=== PATIENT | female | born 1955 | race Caucasian/White ===

== ENCOUNTER 2020-08-06 10:23 | Emergency (ER) | payer OTHER ==
[~2020-08-06] VITALS: Ht 162.6 cm; Wt 72.6 kg
[~2020-08-06 10:23] MED LIST: CIPRO250 M1 PO; CYCLOBENZAPRINE10 MG PO; HYDROCODON-ACE1 EACH; LORTAB 5-500 T1 EAC1 PO; MECLIZINE HCL12.5 MG PO; MEDROLDOSEPACK PO; SYNTHROID100 MCG PO; TOPROL XL50 MG PO; TRAMADOL 50 MG50 MG PO
[2020-08-06] MEDS ORDERED: [UNRECOGNIZED DRUG - OTHER] (10:51)
[2020-08-06 12:03] VITALS: BP 153/81
== END 2020-08-06 12:03 | disposition home or self-care (01) ==
LOC: M.ERS 10:23
DX: B34.9 Viral infection, unspecified (principal); Z20.828 Contact with and (suspected) exposure to other viral communicable diseases; I10 Essential (primary) hypertension; E03.9 Hypothyroidism, unspecified; Z90.49 Acquired absence of other specified parts of digestive tract; Z90.711 Acquired absence of uterus with remaining cervical stump; Z88.5 Allergy status to narcotic agent